=== PATIENT | female | born 1940 | race Caucasian/White ===

== ENCOUNTER 2016-03-30 11:16 | Inpatient (IN) | payer MEDICARE ==
[~2016-03-30] VITALS: Ht 162.6 cm; Wt 68.7 kg
[2016-03-30 11:23] VITALS: BP 135/86; PULSE 77; RESP 16; TEMP 98.6; O2SAT 99
[2016-03-30] MEDS ORDERED: VANCOMYCIN INJ 1,000 MG in SODIUM CHLOR 0.9% 250 ML INJ 250 ML IV STA (11:38)
[2016-03-30] MEDS ORDERED: AZTREONAM INJ 2,000 MG in SODIUM CHLORIDE 0.9% INJ 100 ML IV STA (11:38)
[2016-03-30] MEDS ORDERED: metroNIDAZOLE 500 MG INJ 100 ML IV STA (11:38)
[2016-03-30] MEDS ORDERED: AMIO200T PO (11:39)
[2016-03-30] MEDS ORDERED: LEVO50TA4 PO (11:39)
[2016-03-30] MEDS ORDERED: ATOR40TA16 PO (11:39)
[2016-03-30] MEDS ORDERED: APIX5TAB PO (11:39)
[2016-03-30] MEDS ORDERED: CITA20TA4 PO (11:39)
[2016-03-30] MEDS ORDERED: LOSA25TA PO (11:39)
[2016-03-30] MEDS ORDERED: MUPI2OIN TOPICAL (11:40)
[2016-03-30] MEDS ORDERED: CLIN1CAP6 PO (11:40)
[2016-03-30] MEDS ORDERED: BACT800T5 PO (11:40)
[2016-03-30] MEDS ORDERED: PROT40TA PO (11:40)
[2016-03-30] MEDS ORDERED: OXYB5TAB PO (11:40)
[2016-03-30 11:59] LABS: AUTOMATED NEUTROPHIL # 3.7 TH/MM3 (1.8-7.7); BASOPHIL # 0.1 TH/MM3 (0-0.2); BASOPHIL % 1.2 % (0.0-2.0); EOSINOPHIL # 0.1 TH/MM3 (0-0.4); EOSINOPHIL % 1.6 % (0.0-4.0); HEMATOCRIT 34.1 % (35.0-46.0); HEMO FLAGS DIFF FINAL; LYMPH % 19.8 % (9.0-44.0); LYMPHOCYTE # 1.1 TH/MM3 (1.0-4.8); MEAN CELL VOLUME 89.9 FL (80.0-100.0); MEAN CORPUSCULAR HEMOGLOBIN 29.8 PG (27.0-34.0); MEAN CORPUSCULAR HGB CONC 33.2 % (32.0-36.0); MONO % 11.5 % (0.0-8.0); NEUT % 65.9 % (16.0-70.0); PLATELET COUNT 345 TH/MM3 (150-450); RED BLOOD COUNT 3.79 MIL/MM3 (4.00-5.30); WHITE BLOOD COUNT 5.6 TH/MM3 (4.0-11.0)
[2016-03-30 12:08] LABS: CHLORIDE 102 MEQ/L (98-107); POTASSIUM 3.9 MEQ/L (3.5-5.1); SODIUM (NA) 137 MEQ/L (136-145)
[2016-03-30 12:11] LABS: ANION GAP 10 MEQ/L (5-15); BICARBONATE 25.3 MEQ/L (21.0-32.0); BLOOD UREA NITROGEN 16 MG/DL (7-18); MAGNESIUM 2.4 MG/DL (1.5-2.5)
[2016-03-30 12:12] LABS: APTT (PATIENT) 29.7 SEC (24.3-30.1); PROTHROMBIN TIME - PATIENT 10.5 SEC (9.8-11.6)
[2016-03-30 12:14] LABS: ALT (GPT) 46 U/L (10-53); AST (GOT) 39 U/L (15-37); GLOMERULAR FILTRATION RATE 64 ML/MIN (>89)
[2016-03-30 12:15] VITALS: BP 176/80; PULSE 69; RESP 16; O2SAT 98
[2016-03-30 12:16] LABS: TOTAL BILIRUBIN ADULT 0.4 MG/DL (0.2-1.0)
[2016-03-30 12:17] LABS: ALKALINE PHOSPHATASE 113 U/L (45-117)
--- NOTE | 2016-03-30 12:29 | PD ---
HPI Chief Complaint: Skin Problem Time Seen by Provider: 11:31 Travel History International Travel<30 days: No Contact w/Intl Traveler<30days: No Traveled to known affect area: No History of Present Illness HPI 75-year-old female states a week and a half ago she fell off a bridge in the [facility] and scraped her leg and got it dirty. She states about a week ago it started to get red and infected and now she has been on antibiotics a couple days through an urgent care and it is not getting better. She currently is on clindamycin and Bactrim. She denies any fever or other concurrent complaints. Quality is red. Severity is worsening. Location is mainly right leg. PFSH Past Medical History Hx Anticoagulant Therapy: Yes (ELAQUIST) Heart Rhythm Problems: Yes Cardiovascular Problems: Yes (AFIB/PACER) High Cholesterol: Yes Coronary Artery Disease: Yes Diabetes: No Diminished Hearing: No Hypertension: Yes Thyroid Disease: Yes Tetanus Vaccination: < 5 Years ?: Not Past Surgical History Appendectomy: Yes Body Medical Devices: PACER Cardiac Surgery: Yes (PACER ) Hysterectomy: Yes Tonsillectomy: Yes Social History Alcohol Use: Yes (SOC) Tobacco Use: No Substance Use: No Allergies-Medications (Allergen,Severity, Reaction): Coded Allergies: Contrast Media (Verified Allergy, Severe, Anaphylaxis, 03/30/16) Penicillin (Verified Allergy, Unknown, Anaphylaxis, 03/30/16) Reported Meds & Prescriptions Reported Meds & Active Scripts Active Reported Mupirocin Topical (Mupirocin) 2 % Oint 1 Applic TOPICAL BID Bactrim DS (Sulfamethoxazole-Trimethoprim) 800-160 Mg Tab 1 Tab PO BID Clindamycin (Clindamycin HCl) 300 Mg Cap 300 Mg PO TID Protonix (Pantoprazole Sodium) 40 Mg Tab 40 Mg PO DAILY Oxybutynin ER 24 HR (Oxybutynin Chloride) 5 Mg Tab 5 Mg PO DAILY Losartan (Losartan Potassium) 25 Mg Tab 25 Mg PO DAILY Levothyroxine (Levothyroxine Sodium) 50 Mcg Tab 50 Mcg PO DAILY Eliquis (Apixaban) 5 Mg Tab 5 Mg PO BID Citalopram (Citalopram Hydrobromide) 20 Mg Tab 20 Mg PO DAILY Atorvastatin (Atorvastatin Calcium) 40 Mg Tab 40 Mg PO HS Amiodarone (Amiodarone HCl) 200 Mg Tab 200 Mg PO DAILY Review of Systems Except as stated in HPI: all other systems reviewed are Neg Physical Exam Narrative GENERAL: Well-nourished, well-developed patient. SKIN: Right lower leg with old abrasion with larger surrounding overlying erythema and warmth noted, small abrasion noted to left leg just below knee with small area of redness HEAD: Normocephalic and atraumatic. EYES: No injection or drainage. ENT: No nasal drainage noted. NECK: Supple, trachea midline. CARDIOVASCULAR: Regular rate and rhythm RESPIRATORY: No increased effort. No accessory muscle use. EXTREMITIES: No edema. No specific joint pain, neurovascularly intact, compartments soft. NEUROLOGICAL: Awake and alert. Motor and sensory grossly within normal limits. Normal speech. Data Data Last Documented VS Vital Signs Date Time Temp Pulse Resp B/P Pulse Ox O2 Delivery O2 Flow Rate FiO2 03/30/16 12:15 69 16 176/80 98 Room Air 03/30/16 11:23 98.6 Orders Complete Blood Count With Diff (03/30/16 11:38) Comprehensive Metabolic Panel (03/30/16 11:38) Prothrombin Time / Inr (Pt) (03/30/16 11:38) Act Partial Throm Time (Ptt) (03/30/16 11:38) Magnesium (Mg) (03/30/16 11:38) Wound Culture And Gram Stain (03/30/16 11:38) Iv Access Insert/Monitor (03/30/16 11:38) Aztreonam Inj (Azactam Inj) (03/30/16 11:38) Metronidazole 500 Mg Inj (Flagyl 500 Mg (03/30/16 11:38) Vancomycin Inj (Vancomycin Inj) (03/30/16 11:38) Blood Culture (03/30/16 11:38) Tibia/Fibula (Ap/Lat) (03/30/16 ) Admit Order (Ed Use Only) (03/30/16 13:19) Labs Laboratory Tests Test 03/30/16 11:50 White Blood Count 5.6 TH/MM3 Red Blood Count 3.79 MIL/MM3 Hemoglobin 11.3 GM/DL Hematocrit 34.1 % Mean Corpuscular Volume 89.9 FL Mean Corpuscular Hemoglobin 29.8 PG Mean Corpuscular Hemoglobin 33.2 % Concent Red Cell Distribution Width 13.0 % Platelet Count 345 TH/MM3 Mean Platelet Volume 8.1 FL Neutrophils (%) (Auto) 65.9 % Lymphocytes (%) (Auto) 19.8 % Monocytes (%) (Auto) 11.5 % Eosinophils (%) (Auto) 1.6 % Basophils (%) (Auto) 1.2 % Neutrophils # (Auto) 3.7 TH/MM3 Lymphocytes # (Auto) 1.1 TH/MM3 Monocytes # (Auto) 0.6 TH/MM3 Eosinophils # (Auto) 0.1 TH/MM3 Basophils # (Auto) 0.1 TH/MM3 CBC Comment DIFF FINAL Differential Comment Prothrombin Time 10.5 SEC Prothromb Time International 1.0 RATIO Ratio Activated Partial 29.7 SEC Thromboplast Time Sodium Level 137 MEQ/L Potassium Level 3.9 MEQ/L Chloride Level 102 MEQ/L Carbon Dioxide Level 25.3 MEQ/L Anion Gap 10 MEQ/L Blood Urea Nitrogen 16 MG/DL Creatinine 0.86 MG/DL Estimat Glomerular Filtration 64 ML/MIN Rate Random Glucose 89 MG/DL Calcium Level 8.8 MG/DL Magnesium Level 2.4 MG/DL Total Bilirubin 0.4 MG/DL Aspartate Amino Transf 39 U/L (AST/SGOT) Alanine Aminotransferase 46 U/L (ALT/SGPT) Alkaline Phosphatase 113 U/L Total Protein 7.5 GM/DL Albumin 3.8 GM/DL [facility] Medical Decision Making Medical Screen Exam Complete: Yes Emergency Medical Condition: Yes Medical Record Reviewed: Yes (past history confirmed) Interpretation(s) CBC & BMP Diagram 03/30/16 11:50 Last 24 hours Impressions Tibia/Fibula X-Ray 03/30/16 0000 Signed Impressions: Service Date/Time: Wednesday, March 30, 2016 12:23 - CONCLUSION: Unremarkable exam. Mark Rose MD Differential Diagnosis Cellulitis, abrasion, fracture, strain Narrative Course Will check blood work, x-ray and dose with aztreonam, Flagyl and vancomycin given penicillin allergy and prior antibiotics used of Bactrim and clindamycin labs and xray without emergent findings, patient agrees to admit Physician Communication Physician Communication dr rice agrees to admit Diagnosis Primary Impression: Cellulitis Qualified Code: L03.119 - Cellulitis of lower extremity, unspecified laterality Admitting Information Admitting Physician Requests: Admit Carmen Guy MD Mar 30, 2016 12:29
--- NOTE | 2016-03-30 12:54 | RADHPO ---
EXAM DATE/TIME: 03/30/2016 12:23 [facility] COMPARISON: No previous studies available for comparison. INDICATIONS : Laceration/infection to anterior right tibia/fibula post fall. MEDICAL HISTORY : Hypertension. Hiatal hernia. Thyroid disease. A-fib. CAD. SURGICAL HISTORY : Tonsillectomy. Pacemaker. Hysterectomy. Appendectomy. ENCOUNTER: Initial ACUITY: 2 weeks PAIN SCORE: 8/10 LOCATION: Right anterior mid tibia/fibula FINDINGS: Two view examination of the right tibia demonstrates no evidence of fracture or dislocation. Bony mi neralization is normal. The soft tissue structures are intact. No definite foreign body are demonstr ated. CONCLUSION: Unremarkable exam. Mark Rose MD on March 30, 2016 at 12:51 Board Certified Radiologist. This report was verified electronically.
[2016-03-30 13:52] VITALS: BP 148/68; PULSE 76; RESP 16; O2SAT 98
[2016-03-30] MEDS ORDERED: SODIUM CHLORIDE 0.9% FLUSH 5 ML FLUSH FLUSH PRN ×2 (14:15→16:15)
--- NOTE | 2016-03-30 15:52 | HHI.HP ---
[facility] Primary Care Physician Clifford Ramsay MD Admission Diagnosis cellulitis, failed outpatient Diagnoses: (1) Bilateral lower leg cellulitis Diagnosis: Principal (2) Hypertension Diagnosis: Secondary (3) Hyperlipidemia Diagnosis: Secondary (4) History of atrial fibrillation Diagnosis: Secondary Chief Complaint: Bilateral lower extremity worsening redness Travel History International Travel<30 Days: No Contact w/Intl Traveler <30 Da: No Traveled to Known Affected Are: No History of Present Illness 75-year-old female with known history of hypertension, hyperlipidemia , atrial fibrillation, hypothyroidism who presented to hospital because of worsening redness around previous wound. Patient states that approximately 10 days ago she was up in [place] and walking across a wooden bridge and it broke and she fell into the mud. She sustained laceration on bilateral lower extremities. She went back and wanted the best that she could. The previously got worse where she went to urgent care on Tuesday 32 days ago and was prescribed clindamycin and Bactrim. Patient states that it did not improve so she went back to the urgent care again and they told her to go to the hospital for evaluation. Patient had evaluation done by emergency room physician. Workup essentially normal, no fever, no leukocytosis, no signs of sepsis. Did have wound which does have eschar without any exudates, purulence. There is erythema noted from the wound down to her ankle. Because she failed outpatient management as requested by the ER physician that the patient be admitted for further evaluation and management. Patient denies any fever, chills, accidents , chest pain, shortness breath, nausea, vomiting. Review of Systems Constitutional: DENIES: Diaphoretic episodes, Fatigue, Fever, Weight gain, Weight loss, Chills, Dizziness, Change in appetite, Night Sweats Eyes: COMPLAINS OF: Photosensitivity, DENIES: Blurred vision, Diplopia, Eye inflammation, Eye pain, Vision loss, Double Vision Ears, nose, mouth, throat: DENIES: Vertigo, Nasal discharge, Throat pain, Ear Pain, Running Nose, Sinus Pain Respiratory: DENIES: Apneas, Cough, Snoring, Wheezing, Hemoptysis, Sputum production, Shortness of breath Cardiovascular: DENIES: Chest pain, Palpitations, Syncope, Dyspnea on Exertion , Lower Extremity Edema, Orthopnea Gastrointestinal: DENIES: Abdominal pain, Black stools, Bloody stools, Constipation, Diarrhea, Nausea, Vomiting, Difficulty Swallowing, Anorexia Neurologic: DENIES: Abnormal gait, Headache, Localized weakness, Paresthesias, Seizures, Speech Problems, Tremor, Poor Balance Past Family Social History Past Medical History Hypertension Hyperlipidemia History of atrial fibrillation Hypothyroidism Past Surgical History Cataract surgery Cardiac ablation for atrial fibrillation Permanent pacemaker placement secondary to syncope Breast implants with removal secondary to leakage and sepsis Tonsillectomy Reported Medications Reported Meds & Active Scripts Active Reported Mupirocin Topical (Mupirocin) 2 % Oint 1 Applic TOPICAL BID Bactrim DS (Sulfamethoxazole-Trimethoprim) 800-160 Mg Tab 1 Tab PO BID Clindamycin (Clindamycin HCl) 300 Mg Cap 300 Mg PO TID Protonix (Pantoprazole Sodium) 40 Mg Tab 40 Mg PO DAILY Oxybutynin ER 24 HR (Oxybutynin Chloride) 5 Mg Tab 5 Mg PO DAILY Losartan (Losartan Potassium) 25 Mg Tab 25 Mg PO DAILY Levothyroxine (Levothyroxine Sodium) 50 Mcg Tab 50 Mcg PO DAILY Eliquis (Apixaban) 5 Mg Tab 5 Mg PO BID Citalopram (Citalopram Hydrobromide) 20 Mg Tab 20 Mg PO DAILY Atorvastatin (Atorvastatin Calcium) 40 Mg Tab 40 Mg PO HS Amiodarone (Amiodarone HCl) 200 Mg Tab 200 Mg PO DAILY Allergies: Coded Allergies: Contrast Media (Verified Allergy, Severe, Anaphylaxis, 03/30/16) Penicillin (Verified Allergy, Unknown, Anaphylaxis, 03/30/16) Family History Reviewed is significant for father from pancreatic cancer, brother had cardiac while shoveling snow. Another brother from hypothermia Social History Patient denies any tobacco or illicit drug use. She does usually drink 2 glasses of wine daily. However she has not drank since starting antibiotics Physical Exam Vital Signs Vital Signs Date Time Temp Pulse Resp B/P Pulse Ox O2 Delivery O2 Flow Rate FiO2 03/30/16 13:52 76 16 148/68 98 Room Air 03/30/16 12:15 69 16 176/80 98 Room Air 03/30/16 11:23 98.6 77 16 135/86 99 Physical Exam GENERAL: Well-developed, well-nourished, in no acute distress. alert and orientated HEENT: Head is normocephalic without any lesions or masses noted. Facial features are symmetric. Eyes: Pupils equal round reactive to light. Extraocular muscles are intact. Conjunctivae were clear. Oropharyngeal: Pharynx without any erythema edema. Tongue is midline without deviation. Buccal mucosa is moist without any masses or lesions NECK: Supple without any masses. Trachea midline no deviation. No JVD, no bruits are appreciated CARDIAC: Regular rhythm, regular rate. S1/S2 are heard. No murmurs gallops or rubs. LUNGS: Clear to auscultation bilaterally. No wheeze, rhonchi or rales. No use of accessory muscles on inspiration or expiration. ABDOMEN: Soft, nontender. Nondistended. Bowel sounds heard in all 4 quadrants. No organomegaly or masses. Negative rebound, negative guarding EXTREMITIES: No edema, pulses are equal bilaterally. No cyanosis or clubbing NEUROLOGY: Mood and affect appear appropriate. Cranial nerves II through XII grossly intact. Muscle strength 5/5 in upper and lower extremities bilaterally. Deep tendon reflexes are 2+ in upper and lower extremities bilaterally. LEFT LOWER EXTREMITY: Patient does have excoriation, bruising noted just below the tibial tuberosity. There is no fluctuation, exudates, purulence. Eschar is intact with linear tear measuring approximately 5 cm. There is erythema noted around eschar. RIGHT LOWER EXTREMITY: Patient does have another wound noted/skin tear measuring 3 x 5 cm without any signs of purulence, exudates, fluctuance. Patient does have erythema noted from the wound down to her superior ankle. Laboratory Laboratory Tests Test 03/30/16 11:50 White Blood Count 5.6 Red Blood Count 3.79 Hemoglobin 11.3 Hematocrit 34.1 Mean Corpuscular Volume 89.9 Mean Corpuscular Hemoglobin 29.8 Mean Corpuscular Hemoglobin 33.2 Concent Red Cell Distribution Width 13.0 Platelet Count 345 Mean Platelet Volume 8.1 Neutrophils (%) (Auto) 65.9 Lymphocytes (%) (Auto) 19.8 Monocytes (%) (Auto) 11.5 Eosinophils (%) (Auto) 1.6 Basophils (%) (Auto) 1.2 Neutrophils # (Auto) 3.7 Lymphocytes # (Auto) 1.1 Monocytes # (Auto) 0.6 Eosinophils # (Auto) 0.1 Basophils # (Auto) 0.1 CBC Comment DIFF FINAL Differential Comment Prothrombin Time 10.5 Prothromb Time International 1.0 Ratio Activated Partial 29.7 Thromboplast Time Sodium Level 137 Potassium Level 3.9 Chloride Level 102 Carbon Dioxide Level 25.3 Anion Gap 10 Blood Urea Nitrogen 16 Creatinine 0.86 Estimat Glomerular Filtration 64 Rate Random Glucose 89 Calcium Level 8.8 Magnesium Level 2.4 Total Bilirubin 0.4 Aspartate Amino Transf 39 (AST/SGOT) Alanine Aminotransferase 46 (ALT/SGPT) Alkaline Phosphatase 113 Total Protein 7.5 Albumin 3.8 Date/Time Procedure Status Source Growth 03/30/16 11:54 Gram Stain Received Wound Leg Pending 03/30/16 11:54 Wound Culture Received Wound Leg Pending 03/30/16 11:50 Aerobic Blood Culture Received Blood Peripheral Pending 03/30/16 11:50 Anaerobic Blood Culture Received Blood Peripheral Pending Result Diagram: 03/30/16 1150 03/30/16 1150 Imaging Last Impressions Tibia/Fibula X-Ray 03/30/16 0000 Signed Impressions: Service Date/Time: Wednesday, March 30, 2016 12:23 - CONCLUSION: Unremarkable exam. Mark Rose MD Assessment and Plan Assessment and Plan Cellulitis of bilateral lower extremities secondary to mild trauma. Patient did undergo 3 days of oral antibiotic treatment with apparent improvement. I did review photographs on daughter's phone as compared to her wounds now. Does appear to be improving, wound does appear to be healing with nice edges, dry without any exudates. Mild increase in erythema noted distal to the wound. Start clindamycin IV Hypertension Continue home medications Hyperlipidemia Continue home medications History of atrial fibrillation Continue amiodarone Continue anticoagulation Hypothyroidism Continue home medication DVT prevention Patient is on [facility] Physician Certification 2 Midnight Certification Type: Admission for Inpatient Services Order for Inpatient Services The services are ordered in accordance with Medicare regulations or non- Medicare payer requirements, as applicable. In the case of services not specified as inpatient-only, they are appropriately provided as inpatient services in accordance with the 2-midnight benchmark. Estimated LOS (days): 1 days is the estimated time the patient will need to remain in the hospital, assuming treatment plan goals are met and no additional complications. Post-Hospital Plan: Not yet determined Medical Decision Making Impression and Plan The exam, history, and the medical decision-making described in the above note were completed with my assistance as the dictating practitioner. I attest that I had a [id number] encounter with the patient on the same day, and personally performed all of the history, exam, or medical decision making. I reviewed and agree with the plan. Patient seen and evaluated today in follow-up for cellulitis. Care plan discussed with daughter and patient as well as Nancy RN. Problem Qualifiers (1) Hypertension: Qualified Code: I15.9 - Secondary hypertension (2) Hyperlipidemia: Qualified Code: E78.5 - Hyperlipidemia, unspecified hyperlipidemia type Farhat Welch Mar 30, 2016 15:51 Arielle Mary MD Mar 30, 2016 16:21
[2016-03-30] MEDS ORDERED: ACETAMINOPHEN/HYDROcodone 325 MG/5 MG TAB PO PRN (16:00)
[2016-03-30] MEDS ORDERED: ACETAMINOPHEN 500 MG CPLT PO PRN (16:00)
[2016-03-30] MEDS ORDERED: BISACODYL 10 MG SUPP PR PRN (16:15)
[2016-03-30] MEDS ORDERED: NALOXONE HCL 0.4 MG/ML AMP IV PRN (16:15)
[2016-03-30] MEDS ORDERED: ONDANSETRON HCL 4 MG/2 ML VIAL IVP PRN (16:15)
[2016-03-30] MEDS ORDERED: MAGNESIUM HYDROXIDE SUSP 30 ML CUP PO PRN (16:15)
[2016-03-30] MEDS ORDERED: IMIP50TA PO (16:23)
[2016-03-30 16:30] VITALS: BP 153/74; PULSE 71; RESP 18; TEMP 97.8; O2SAT 99
[2016-03-30] MEDS: SODIUM CHLOR 0.9% 1000 ML INJ 1,000 ML IV SCH (16:54)
[2016-03-30] MEDS: CLINDAMYCIN INJ 300 MG in SODIUM CHLORIDE 0.9% INJ 100 ML IV SCH ×2 (16:55→22:01)
[2016-03-30 20:00] VITALS: BP 146/74; PULSE 68; RESP 18; TEMP 96.7; O2SAT 95
[2016-03-30] MEDS: APIXABAN 5 MG TABLET PO SCH (20:34)
[2016-03-30] MEDS: ATORVASTATIN 40 MG TAB PO SCH (20:35)
[2016-03-30] MEDS: SODIUM CHLORIDE 0.9% FLUSH 5 ML FLUSH FLUSH SCH (20:35)
[2016-03-30] MEDS ORDERED: SODIUM CHLORIDE 0.9% FLUSH 5 ML FLUSH FLUSH SCH (21:00)
[2016-03-30] MEDS: TEMAZEPAM 15 MG CAP PO PRN (22:01)
[2016-03-31] VITALS: BP 135/69; PULSE 71; RESP 18; TEMP 97.9; O2SAT 99
[2016-03-31] MEDS: SODIUM CHLOR 0.9% 1000 ML INJ 1,000 ML IV SCH ×3 (05:10→21:52)
[2016-03-31] MEDS: CLINDAMYCIN INJ 300 MG in SODIUM CHLORIDE 0.9% INJ 100 ML IV SCH ×4 (05:11→21:59)
[2016-03-31] MEDS: LEVOTHYROXINE SODIUM 50 MCG TAB PO SCH (05:12)
[2016-03-31 08:00] VITALS: BP 166/75; PULSE 70; RESP 20; TEMP 96.8; O2SAT 100
[2016-03-31] MEDS: SODIUM CHLORIDE 0.9% FLUSH 5 ML FLUSH FLUSH SCH ×2 (09:00→21:00)
[2016-03-31] MEDS: TOLTERODINE TARTRATE 2 MG CAP LA PO SCH (09:34)
[2016-03-31] MEDS: CITALOPRAM HYDROBROMIDE 20 MG TAB PO SCH (09:34)
[2016-03-31] MEDS: AMIODARONE 200 MG TAB PO SCH (09:34)
[2016-03-31] MEDS: LOSARTAN 25 MG TAB PO SCH (09:34)
[2016-03-31] MEDS: APIXABAN 5 MG TABLET PO SCH ×2 (09:34→21:13)
[2016-03-31] MEDS: PANTOPRAZOLE SOD 40 MG DELAYED RELEASE TAB PO SCH (09:35)
[2016-03-31 12:00] VITALS: BP 140/78; PULSE 66; RESP 20; TEMP 96.8; O2SAT 98
--- NOTE | 2016-03-31 15:15 | HHI.PR ---
Subjective Remarks Still getting occasional twinges of pain in the b/l LE. C/o constipation. Objective Vitals Vital Signs Date Time Temp Pulse Resp B/P Pulse Ox O2 Delivery O2 Flow Rate FiO2 03/31/16 12:00 96.8 66 20 140/78 98 03/31/16 08:00 96.8 70 20 166/75 100 03/31/16 00:00 97.9 71 18 135/69 99 03/30/16 20:00 96.7 68 18 146/74 95 03/30/16 16:30 97.8 71 18 153/74 99 I/O 03/30/16 03/30/16 03/30/16 03/31/16 03/31/16 03/31/16 06:59 14:59 22:59 06:59 14:59 22:59 Intake Total 450 ml 982 ml 941 ml Output Total 800 ml 1000 ml Balance 450 ml 182 ml -59 ml Intake Oral 480 ml 240 ml IV Total 450 ml 502 ml 701 ml Output Urine Total 800 ml 1000 ml # Bowel Movements 0 0 Result Diagram: 03/30/16 1150 03/30/16 1150 Objective Remarks GENERAL: Well-nourished, well-developed patient. SKIN: Warm and dry. HEAD: Normocephalic. EYES: No scleral icterus. No injection or drainage. NECK: Supple, trachea midline. No JVD or lymphadenopathy. CARDIOVASCULAR: Regular rate and rhythm without murmurs, gallops, or rubs. RESPIRATORY: Breath sounds equal bilaterally. No accessory muscle use. GASTROINTESTINAL: Abdomen soft, non-tender, nondistended. EXTREMITIES: No cyanosis, or edema. has skin tear/wound below left knee with bruising no signs of erythema or infection, right centeno also with wound/skin tear with minimal surrounding erythema, no drainage, area of erythema appears to have receded from the pen marking. present dorsalis pedis pulses b/l, although right slightly weaker than left. NEUROLOGICAL: Awake, alert, and oriented x 3. Non-focal. A/P Problem List: (1) Bilateral lower leg cellulitis ICD Code: L03.116 Status: Acute (2) Hypertension ICD Code: I10 Status: Acute (3) Hyperlipidemia ICD Code: E78.5 Status: Acute (4) History of atrial fibrillation ICD Code: Z86.79 Status: Acute Assessment and Plan Skin tear b/l LE s/p fall 1 week ago, now with associated cellulitis of right lower extremity - failed outpatient abx (3 days bactrim and clindamycin) -clinically improving, continue clindamycin IV -leave wounds open to air -has present dorsalis pedis pulses b/l Hypertension Continue home medications Hyperlipidemia Continue home medications History of atrial fibrillation Continue amiodarone Continue anticoagulation Hypothyroidism Continue home medication DVT prevention Patient is on Eliquis Problem Qualifiers (1) Hypertension: Qualified Code: I15.9 - Secondary hypertension (2) Hyperlipidemia: Qualified Code: E78.5 - Hyperlipidemia, unspecified hyperlipidemia type Verito Hernandez MD Mar 31, 2016 15:15
[2016-03-31] MEDS: DOCUSATE SODIUM 50 MG/SENNA 8.6 MG TAB PO SCH ×2 (17:05→21:13)
[2016-03-31 17:41] VITALS: BP 136/75; PULSE 65; RESP 15; TEMP 97.1; O2SAT 99
[2016-03-31 20:00] VITALS: BP 144/79; PULSE 69; RESP 18; TEMP 98.3; O2SAT 94
[2016-03-31] MEDS: ATORVASTATIN 40 MG TAB PO SCH (21:13)
[2016-03-31] MEDS: TEMAZEPAM 15 MG CAP PO PRN (21:13)
[2016-04-01] VITALS: BP 121/68; PULSE 69; RESP 18; TEMP 96.2; O2SAT 100
[2016-04-01] MEDS: CLINDAMYCIN INJ 300 MG in SODIUM CHLORIDE 0.9% INJ 100 ML IV SCH ×2 (04:09→13:57)
[2016-04-01] MEDS: SODIUM CHLOR 0.9% 1000 ML INJ 1,000 ML IV SCH (04:10)
[2016-04-01] MEDS: LEVOTHYROXINE SODIUM 50 MCG TAB PO SCH (05:28)
[2016-04-01 08:00] VITALS: BP 122/60; PULSE 75; RESP 16; TEMP 96.4; O2SAT 100
[2016-04-01] MEDS: SODIUM CHLORIDE 0.9% FLUSH 5 ML FLUSH FLUSH SCH (08:27)
[2016-04-01] MEDS: TOLTERODINE TARTRATE 2 MG CAP LA PO SCH (08:27)
[2016-04-01] MEDS: PANTOPRAZOLE SOD 40 MG DELAYED RELEASE TAB PO SCH (08:27)
[2016-04-01] MEDS: CITALOPRAM HYDROBROMIDE 20 MG TAB PO SCH (08:27)
[2016-04-01] MEDS: DOCUSATE SODIUM 50 MG/SENNA 8.6 MG TAB PO SCH (08:27)
[2016-04-01] MEDS: APIXABAN 5 MG TABLET PO SCH (08:27)
[2016-04-01] MEDS: LOSARTAN 25 MG TAB PO SCH (08:27)
[2016-04-01] MEDS: AMIODARONE 200 MG TAB PO SCH (08:28)
--- NOTE | 2016-04-01 09:45 | HHI.FF ---
Face to Face Verification Diagnosis: (1) Cellulitis (2) Leg wound, right (3) Leg wound, left Physical Therapy Order: Evaluate and Treat Home Health Nursing Order: Wound care and dressing changes Nursing assessment with vital signs I have seen patient Esme Alexander on 04/01/16. My clinical findings support the need for the requested home health care services because: Deconditioned w/ increased weakness I certify that my clinical findings support that this patient is homebound because: Need for psychosocial assistance Verito Hernandez MD Apr 01, 2016 09:45
--- NOTE | 2016-04-01 09:46 | HHI.DS ---
Discharge Summary Admission Date Mar 30, 2016 at 13:19 Discharge Date: Apr 01, 2016 Admitting Diagnosis cellulitis, failed outpatient (1) Bilateral lower leg cellulitis ICD Code: L03.116 Diagnosis: Principal (2) Hypertension ICD Code: I10 Diagnosis: Secondary (3) Hyperlipidemia ICD Code: E78.5 Diagnosis: Secondary (4) History of atrial fibrillation ICD Code: Z86.79 Diagnosis: Secondary Procedures None Brief History - From Admission 75-year-old female with known history of hypertension, hyperlipidemia , atrial fibrillation, hypothyroidism who presented to hospital because of worsening redness around previous wound. Patient states that approximately 10 days ago she was up in [place] and walking across a wooden bridge and it broke and she fell into the mud. She sustained laceration on bilateral lower extremities. She went back and wanted the best that she could. The previously got worse where she went to urgent care on Tuesday 32 days ago and was prescribed clindamycin and Bactrim. Patient states that it did not improve so she went back to the urgent care again and they told her to go to the hospital for evaluation. Patient had evaluation done by emergency room physician. Workup essentially normal, no fever, no leukocytosis, no signs of sepsis. Did have wound which does have eschar without any exudates, purulence. There is erythema noted from the wound down to her ankle. Because she failed outpatient management as requested by the ER physician that the patient be admitted for further evaluation and management. Patient denies any fever, chills, accidents , chest pain, shortness breath, nausea, vomiting. CBC/BMP: 03/30/16 1150 03/30/16 1150 Significant Findings Laboratory Tests Test 03/30/16 11:50 Red Blood Count 3.79 MIL/MM3 (4.00-5.30) Hemoglobin 11.3 GM/DL (11.6-15.3) Hematocrit 34.1 % (35.0-46.0) Monocytes (%) (Auto) 11.5 % (0.0-8.0) Estimat Glomerular Filtration 64 ML/MIN (>89) Rate Aspartate Amino Transf 39 U/L (15-37) (AST/SGOT) PE at Discharge GENERAL: Well-nourished, well-developed patient. SKIN: Warm and dry. HEAD: Normocephalic. EYES: No scleral icterus. No injection or drainage. NECK: Supple, trachea midline. No JVD or lymphadenopathy. CARDIOVASCULAR: Regular rate and rhythm without murmurs, gallops, or rubs. RESPIRATORY: Breath sounds equal bilaterally. No accessory muscle use. GASTROINTESTINAL: Abdomen soft, non-tender, nondistended. EXTREMITIES: No cyanosis, or edema. has skin tear/wound below left knee with bruising no signs of erythema or infection, right centeno also with wound/skin tear with minimal surrounding erythema, no drainage, area of erythema appears to have receded from the pen marking. present dorsalis pedis pulses b/l, although right slightly weaker than left. NEUROLOGICAL: Awake, alert, and oriented x 3. Non-focal. Hospital Course The patient was admitted and treated with IV clindamycin. She made steady improvement. The patient will need ongoing wound care, for the abrasion on her right centeno. She does have a weaker dorsalis pedis pulse on the right foot. Home health care was ordered. She will continue on by mouth clindamycin. She is to follow-up with her primary care physician next week. Would recommend ABIs with her PCP. Pt Condition on Discharge: Stable Discharge Disposition: Disch w/ Home Health Serv Discharge Time: <= 30 minutes Discharge Instructions DIET: Follow Instructions for: As Tolerated, No Restrictions Activities you can perform: Regular-No Restrictions Verito Hernandez MD Apr 01, 2016 09:46
[2016-04-01] MEDS ORDERED: CLIN1CAP6 PO (09:47)
[2016-04-01 12:00] VITALS: BP 139/83; PULSE 70; RESP 16; TEMP 96.6; O2SAT 100
== END 2016-04-01 17:00 | disposition home health service (06) | DRG 603 ==
LOC: PHED 11:16 → PHEDA 13:19 → PH3B 15:44
PROVIDERS: ADMIT Family Medicine; ATTEND Family Medicine
DX: L03.115 Cellulitis of right lower limb (principal); L03.116 Cellulitis of left lower limb; I48.91 Unspecified atrial fibrillation; I15.9 Secondary hypertension, unspecified; I25.10 Atherosclerotic heart disease of native coronary artery without angina pectoris; E78.5 Hyperlipidemia, unspecified; E03.9 Hypothyroidism, unspecified; K59.00 Constipation, unspecified; S80.812A Abrasion, left lower leg, initial encounter; S80.811A Abrasion, right lower leg, initial encounter; W13.1XXA Fall from, out of or through bridge, initial encounter; Y92.89 Other specified places as the place of occurrence of the external cause; Y93.01 Activity, walking, marching and hiking; S80.02XA Contusion of left knee, initial encounter; S81.812A Laceration without foreign body, left lower leg, initial encounter; S81.811A Laceration without foreign body, right lower leg, initial encounter; Z88.0 Allergy status to penicillin; Z91.81 History of falling; Z95.0 Presence of cardiac pacemaker; Z88.1 Allergy status to other antibiotic agents
CPT/HCPCS: 73590; 80053; 83735; 85025; 85610; 85730; 86403; 87040; 87070; 96365; 96367; J3370; J7030; J7050